=== PATIENT | male | born 1945 | race Caucasian/White ===

== ENCOUNTER 2018-03-01 09:37 | Emergency (ER) | payer MEDICARE ==
[2018-03-01] MEDS ORDERED: SODIUM CHLORIDE 0.9% 1,000 ML IV STA ×2 (10:09)
[2018-03-01 10:53] LABS: Appearance,Urine Cloudy (Clear); Bacteria,Urine Rare /hpf; Basophils % (A) 0 %; Bilirubin,Urine Negative (Negative); Blood,Urine Large (Negative); Color,Urine Red; Eosinophils # (A) 0.1 k/uL (0-0.7); Eosinophils % (A) 1 %; Glucose,Urine (UA) Negative (Negative); HCT 43.2 % (39.0-53.0); HGB 14.6 gm/dL (13.0-17.5); Ketones,Urine Trace (Negative); Leukocyte Esterase,Urine Small (Negative); Lymphocytes # (A) 1.5 k/uL (1.0-4.8); Lymphocytes % (A) 14 %; MCH 32.1 pg (25.0-35.0); MCHC 33.7 g/dL (31.0-37.0); MCV 95.2 fL (80.0-100.0); Mean Platelet Volume 6.8; Monocytes # (A) 0.4 k/uL (0-1.0); Monocytes % (A) 4 %; Neutrophils # (A) 8.7 k/uL (1.3-7.7); Neutrophils % (A) 80 %; Nitrite,Urine Negative (Negative); PH, Urine 5.5 (5.0-8.0); Platelet Count 480 k/uL (150-450); Protein,Urine 2+ (Negative); RBC 4.54 m/uL (4.30-5.90); RBC,Urine >182 /hpf (0-5); RDW 13.9 % (11.5-15.5); Specific Gravity,Urine 1.017 (1.001-1.035); Urobilinogen,Urine <2.0 mg/dL (<2.0); WBC 10.8 k/uL (3.8-10.6)
[2018-03-01 11:01] LABS: ALT 64 U/L (21-72); AST 45 U/L (17-59); Albumin 3.7 g/dL (3.5-5.0); Alkaline Phosphatase 91 U/L (38-126); Amylase 81 U/L (30-110); Anion Gap 12 mmol/L; Blood Urea Nitrogen 11 mg/dL (9-20); Calcium 9.4 mg/dL (8.4-10.2); Carbon Dioxide 21 mmol/L (22-30); Chloride 108 mmol/L (98-107); Creatine Kinase 87 U/L (55-170); Glucose 108 mg/dL (74-99); Lipase 72 U/L (23-300); Potassium 4.6 mmol/L (3.5-5.1); Sodium 141 mmol/L (137-145); Total Bilirubin 0.6 mg/dL (0.2-1.3)
--- NOTE | 2018-03-01 12:04 | ED ---
Male Urogenital HPI - General Chief complaint: Urogenital Stated complaint: Hematuria Time Seen by Provider: 03/01/18 09:56 Source: patient, RN notes reviewed, old records reviewed Mode of arrival: ambulatory Limitations: no limitations - History of Present Illness Initial comments: Pleasant 72-year-old male presents emergency room chief complaint of sudden onset of pain. Painless hematuria yesterday evening. He reports that the symptoms started after he was weed whacking his yard. Patient reports that he' s had a extensive smoking history. He denies any abdominal pain. Denies dysuria. No fever or chills. - Related Data Home Medications Medication Instructions Recorded Confirmed Atorvastatin [Lipitor] 80 mg PO DAILY 03/01/18 03/01/18 Docusate Sodium [Dok] 100 mg PO DAILY 03/01/18 03/01/18 HYDROcodone/APAP 5-325MG [[place] 1 tab PO BID 03/01/18 03/01/18 5-325] Ibuprofen [Motrin] 400 mg PO DIRECTED 03/01/18 03/01/18 Lisinopril [Zestril] 20 mg PO BID 03/01/18 03/01/18 amLODIPine [Norvasc] 5 mg PO DAILY 03/01/18 03/01/18 Previous Rx's Medication Instructions Recorded Levofloxacin [Levaquin] 750 mg PO DAILY 3 Days #5 tab 03/01/18 Allergies Allergy/AdvReac Type Severity Reaction Status Date / Time No Known Allergies Allergy Verified 03/01/18 09:44 Review of Systems ROS Statement: Those systems with pertinent positive or pertinent negative responses have been documented in the HPI. ROS Other: All systems not noted in ROS Statement are negative. Past Medical History Additional Past Medical History / Comment(s): pelvis fracture hip fracture rib fracture from tractor accident History of Any Multi-Drug Resistant Organisms: None Reported Past Surgical History: Joint Replacement, Orthopedic Surgery Additional Past Surgical History / Comment(s): pelvic surg Past Psychological History: No Psychological Hx Reported Smoking Status: Current every day smoker Past Alcohol Use History: None Reported Past Drug Use History: None Reported General Exam - General Exam Comments Initial Comments: 72-year-old male. Alert and oriented. No acute distress. Limitations: no limitations General appearance: alert, in no apparent distress Head exam: Present: atraumatic, normocephalic, normal inspection Eye exam: Present: normal appearance, PERRL, EOMI. Absent: scleral icterus, conjunctival injection, periorbital swelling ENT exam: Present: normal exam, mucous membranes moist Neck exam: Present: normal inspection. Absent: tenderness, meningismus, lymphadenopathy Respiratory exam: Present: normal lung sounds bilaterally, other (phlegm cough. No wheezing. ) Cardiovascular Exam: Present: regular rate, normal rhythm, normal heart sounds. Absent: systolic murmur, diastolic murmur, rubs, gallop, clicks GI/Abdominal exam: Present: soft, normal bowel sounds. Absent: distended, tenderness, guarding, rebound, rigid Extremities exam: Present: normal inspection, full ROM, normal capillary refill. Absent: tenderness, pedal edema, joint swelling, calf tenderness Back exam: Present: normal inspection Neurological exam: Present: alert, oriented X3, CN II-XII intact Psychiatric exam: Present: normal affect, normal mood Course Vital Signs 03/01/18 03/01/18 03/01/18 09:39 11:30 12:37 Temperature 97.9 F Pulse Rate 81 77 72 Respiratory 16 20 16 Rate Blood Pressure 159/75 159/70 141/65 O2 Sat by Pulse 97 98 97 Oximetry 03/01/18 13:30 Temperature 98.3 F Pulse Rate 86 Respiratory 20 Rate Blood Pressure 134/56 O2 Sat by Pulse 98 Oximetry Medical Decision Making - Medical Decision Making This patient is a 72 year old male with painless hematuria. Patient is a heavy smoker, also complains of cough for the past few days. Patient lab work shows significant hematuria. Paitent blood work was otherwise unremarkable. Patient kidney function was normal. Concern for bladder or kidney cancer. Patient CT shows evidence of bilateral neprholitiasis, no ureter stone, right ureteral changes, and pneumonia. Will treat patient with levaquin for pneumonia, and possible cystitis. Urine culture pending. Discussed the importance of follow up with urology or concern for ureteral cnacer. Patient understands treatment plan and will comply. - Lab Data Result diagrams: 03/01/18 10:38 03/01/18 10:38 Lab Results 03/01/18 03/01/18 03/01/18 Range/Units 10:38 10:38 10:38 WBC 10.8 H (3.8-10.6) k/uL RBC 4.54 (4.30-5.90) m/uL Hgb 14.6 (13.0-17.5) gm/dL Hct 43.2 (39.0-53.0) % MCV 95.2 (80.0-100.0) fL MCH 32.1 (25.0-35.0) pg MCHC 33.7 (31.0-37.0) g/dL RDW 13.9 (11.5-15.5) % Plt Count 480 H (150-450) k/uL Neutrophils % 80 % Lymphocytes % 14 % Monocytes % 4 % Eosinophils % 1 % Basophils % 0 % Neutrophils # 8.7 H (1.3-7.7) k/uL Lymphocytes # 1.5 (1.0-4.8) k/uL Monocytes # 0.4 (0-1.0) k/uL Eosinophils # 0.1 (0-0.7) k/uL Basophils # 0.0 (0-0.2) k/uL Sodium 141 (137-145) mmol/L Potassium 4.6 (3.5-5.1) mmol/L Chloride 108 H (98-107) mmol/L Carbon Dioxide 21 L (22-30) mmol/L Anion Gap 12 mmol/L BUN 11 (9-20) mg/dL Creatinine 0.60 L (0.66-1.25) mg/dL Est GFR (CKD-EPI)AfAm >90 (>60 ml/min/1.73 sqM) Est GFR (CKD-EPI)NonAf >90 (>60 ml/min/1.73 sqM) Glucose 108 H (74-99) mg/dL Calcium 9.4 (8.4-10.2) mg/dL Total Bilirubin 0.6 (0.2-1.3) mg/dL AST 45 (17-59) U/L ALT 64 (21-72) U/L Alkaline Phosphatase 91 (38-126) U/L Creatine Kinase 87 (55-170) U/L Troponin I (0.000-0.034) ng/mL Total Protein 7.0 (6.3-8.2) g/dL Albumin 3.7 (3.5-5.0) g/dL Amylase 81 (30-110) U/L Lipase 72 (23-300) U/L Urine Color Red Urine Appearance Cloudy (Clear) Urine pH 5.5 (5.0-8.0) Ur Specific [place] 1.017 (1.001-1.035) Urine Protein 2+ H (Negative) Urine Glucose (UA) Negative (Negative) Urine Ketones Trace H (Negative) Urine Blood Large H (Negative) Urine Nitrite Negative (Negative) Urine Bilirubin Negative (Negative) Urine Urobilinogen <2.0 (<2.0) mg/dL Ur Leukocyte Esterase Small H (Negative) Urine RBC >182 H (0-5) /hpf Urine Bacteria Rare H (None) /hpf 03/01/18 Range/Units 10:38 WBC (3.8-10.6) k/uL RBC (4.30-5.90) m/uL Hgb (13.0-17.5) gm/dL Hct (39.0-53.0) % MCV (80.0-100.0) fL MCH (25.0-35.0) pg MCHC (31.0-37.0) g/dL RDW (11.5-15.5) % Plt Count (150-450) k/uL Neutrophils % % Lymphocytes % % Monocytes % % Eosinophils % % Basophils % % Neutrophils # (1.3-7.7) k/uL Lymphocytes # (1.0-4.8) k/uL Monocytes # (0-1.0) k/uL Eosinophils # (0-0.7) k/uL Basophils # (0-0.2) k/uL Sodium (137-145) mmol/L Potassium (3.5-5.1) mmol/L Chloride (98-107) mmol/L Carbon Dioxide (22-30) mmol/L Anion Gap mmol/L BUN (9-20) mg/dL Creatinine (0.66-1.25) mg/dL Est GFR (CKD-EPI)AfAm (>60 ml/min/1.73 sqM) Est GFR (CKD-EPI)NonAf (>60 ml/min/1.73 sqM) Glucose (74-99) mg/dL Calcium (8.4-10.2) mg/dL Total Bilirubin (0.2-1.3) mg/dL AST (17-59) U/L ALT (21-72) U/L Alkaline Phosphatase (38-126) U/L Creatine Kinase (55-170) U/L Troponin I <0.012 (0.000-0.034) ng/mL Total Protein (6.3-8.2) g/dL Albumin (3.5-5.0) g/dL Amylase (30-110) U/L Lipase (23-300) U/L Urine Color Urine Appearance (Clear) Urine pH (5.0-8.0) Ur Specific Railroad (1.001-1.035) Urine Protein (Negative) Urine Glucose (UA) (Negative) Urine Ketones (Negative) Urine Blood (Negative) Urine Nitrite (Negative) Urine Bilirubin (Negative) Urine Urobilinogen (<2.0) mg/dL Ur Leukocyte Esterase (Negative) Urine RBC (0-5) /hpf Urine Bacteria (None) /hpf - Radiology Data Radiology results: report reviewed Bilateral nephrolithiasis measuring up to 5 mm. Right-sided renal calculus dependent with calcinosis some could pass into the ureter in the near future currently no ureterocolic ulcer obstructed uropathy. Focal circumferential wall thickening above the upper right ureter could represent nonspecific urethral inflammation recheck infection or early urethral neoplasm correlate with urine cytology and follow-up. Prostatomegaly with prominent bladder distention correlate for BPH. Nodular confluent consolidation in the posterior lung bases determining correlate for infectious risk for a sign including pneumonia. Moderate sized hiatal hernia with extensive chronic fracture deformities of the pelvis. Disposition Clinical Impression: Painless hematuria, Urethral irritation, Enlarged prostate, Pneumonia, Nephrolithiasis Disposition: HOME SELF-CARE Condition: Good Instructions: Hematuria (ED), Pneumonia (ED) Additional Instructions: Patient advised to follow-up promptly with urology. Take antibiotics as prescribed. He also need to follow-up with her primary care physician. Return to emergency department if any alarming signs or symptoms occur. Prescriptions: Levofloxacin [Levaquin] 750 mg PO DAILY 3 Days #5 tab Is patient prescribed a controlled substance at d/c from ED?: No When asked, does pt state using other controlled substances?: No If prescribed controlled substance>3 days was MAPS reviewed?: No If opioid is for acute pain is fill amount 7 days or less?: No If Rx opioid, was Start Talking consent form obtained?: No Referrals: Dewayne Walton MD [Primary Care Provider] - 1-2 days Wellington Sahni MD [STAFF PHYSICIAN] - 1-2 days Time of Disposition: 13:04
--- NOTE | 2018-03-01 12:40 | CT ---
EXAMINATION TYPE: CT abdomen pelvis w con DATE OF EXAM: 03/01/2018 COMPARISON: NONE HISTORY: 72-year-old male with painless Hematuria TECHNIQUE: Contiguous axial scanning of the abdomen and pelvis following administration of 100 ml Iso wili 300 IV contrast. Delayed images through the kidneys and coronal/sagittal reconstructions perform ed. CT DLP: 816 mGycm Automated exposure control for dose reduction was used. FINDINGS: Heart is normal size without pericardial effusion. Patchy consolidation and nodularity is present in the posterior lower lobes and is of uncertain chronicity. No pleural effusion. Moderate size hiatal hernia. No focal liver lesion. No biliary ductal dilatation. Portal venous system is patent. 5 mm dependent gallstone. No abnormal gallbladder distention. Mild thickening of the adrenal glands w ithout discrete nodularity. A number of scattered subcentimeter hypodensities within both kidneys are too small for accurate CT r adiation, likely cysts. Symmetric uptake and excretion of contrast from both kidneys. Small bilateral parapelvic cysts are noted. Bilateral nephrolithiasis, approximately 6 calculi on the right, largest is dependent within the yahaira ceal system measuring 5 mm. 6 calculi in the left, largest measuring 4 mm. Of note, there is some circumferential urothelial thickening of the upper right ureter for a short, 1 .0 to 1.5 cm long segment, refer to axial image 35 and coronal image 40. Moderate atherosclerotic calcifications throughout the abdominal aorta and moderate to severe within the iliac arteries. No dilated small bowel, free fluid, or free air. No mesenteric or retroperitoneal lymphadenopathy. No significant stool burden or pericolonic inflammatory change. Bladder urine distended measuring up to 11.8 cm. Prostatomegaly and 4.7 cm wide. Left-sided pelvic ph lebolith. There is artifact relating to the percutaneous pinning along the left SI joint and left hip replacement limiting visualization of structures in the pelvis. No abnormal fluid collection in the pelvis. Extensive chronic fracture deformities of the pelvis and heterotopic ossification anterior proximal r ight thigh. Degenerative changes throughout the lumbar spine. IMPRESSION: 1. BILATERAL NEPHROLITHIASIS MEASURING UP TO 5 MM. A RIGHT SIDED RENAL CALCULUS IS DEPENDENT WITHIN T HE CALYCEAL SYSTEM AND COULD PASS INTO THE URETER IN THE NEAR FUTURE. CURRENTLY, NO URETERAL CALCULUS OR OBSTRUCTIVE UROPATHY. 2. FOCAL CIRCUMFERENTIAL WALL THICKENING OF THE ABOVE THE UPPER RIGHT URETER, AXIAL IMAGE 35 COULD RE PRESENT SOME NONSPECIFIC UROTHELIAL INFLAMMATION, URINARY TRACT INFECTION, OR EARLY UROTHELIAL NEOPLA SM. CORRELATE WITH URINE CYTOLOGY AND FOLLOW-UP INDICATED. 3. PROSTATOMEGALY (4.7 CM WIDE) WITH PROMINENT URINARY BLADDER DISTENTION; CORRELATE FOR BPH. 4. NODULAR AND CONFLUENT CONSOLIDATION IN THE POSTERIOR LUNG BASES IS AGE INDETERMINATE. CORRELATE FO R ANY ACUTE INFECTIOUS RESPIRATORY SIGNS/SYMPTOMS TO EXCLUDE PNEUMONIA. 5. MODERATE SIZED HIATAL HERNIA AND EXTENSIVE CHRONIC FRACTURE DEFORMITIES OF THE PELVIS.
[2018-03-01 13:36] VITALS: BP 134/56; PULSE 86; RESP 20; TEMP 98.3
== END 2018-03-01 13:30 | disposition home or self-care (01) ==
LOC: EC 09:37
DX: N20.0 Calculus of kidney (principal); N36.8 Other specified disorders of urethra; N40.0 Benign prostatic hyperplasia without lower urinary tract symptoms; J18.9 Pneumonia, unspecified organism; F17.200 Nicotine dependence, unspecified, uncomplicated; Z79.891 Long term (current) use of opiate analgesic; Z79.1 Long term (current) use of non-steroidal anti-inflammatories (NSAID); Z79.899 Other long term (current) drug therapy
CPT/HCPCS: 36415; 93005; 80053; 82150; 82550; 83690; 84484; 85025; 81001; 87086; 74177; 99284; 96360; 96361 ×2; Q9967

== ENCOUNTER → 2022-12-25 | Outpatient (CLI) | payer MEDICARE | END | disposition home or self-care (01) | LOC: LABWHC1 11:10 | PROVIDERS: ATTEND Urology | DX: C61 Malignant neoplasm of prostate (principal) | CPT/HCPCS: 36415; 84153 ==

== ENCOUNTER → 2023-06-27 | Outpatient (CLI) | payer MEDICARE | END | disposition home or self-care (01) | LOC: LABWHC1 11:23 | PROVIDERS: ATTEND Urology | DX: C61 Malignant neoplasm of prostate (principal) | CPT/HCPCS: 36415; 84153 ==